=== PATIENT | female | born 1980 | race Caucasian/White ===

== ENCOUNTER 2018-04-09 18:17 | Emergency (ER) | payer BC ==
[~2018-04-09] VITALS: Ht 154.9 cm; Wt 98.5 kg
[2018-04-09 19:20] LABS: BASOPHIL (%) 0.4 % (0-1); BASOPHIL COUNT 0.1 K/uL (0-0.1); EOSINOPHIL (%) 1.9 % (0-5); EOSINOPHIL COUNT 0.3 K/uL (0-0.3); HEMATOCRIT 44.2 % (36.0-46.0); IMMATURE GRANULOCYTE (%) 0.4 % (0.0-0.7); LYMPHOCYTE (%) 28.6 % (15-42); LYMPHOCYTE COUNT 3.9 K/uL (1.0-2.8); MCH 29.6 PG (29.0-34.0); MCHC 33.9 G/DL (30.0-36.0); MCV 87.4 FL (83-99); MONOCYTE (%) 3.3 % (3-12); MONOCYTE COUNT 0.5 K/uL (0-0.8); NEUTROPHIL (%) 65.4 % (45-76); PLATELET COUNT 312 K/uL (156-360); RBC DIS.WIDTH-CV 13.3 % (11.8-14.6); RBC DIS.WIDTH-SD 41.7 % (39-53); RED BLOOD COUNT 5.06 M/uL (3.80-5.20); WHITE BLOOD COUNT 13.7 K/uL (4.1-10.2)
[2018-04-09 19:38] LABS: CHLORIDE 108 mEq/L (99-109); POTASSIUM 4.2 mEq/L (3.7-5.4); SODIUM 139 mEq/L (136-147)
[2018-04-09 19:40] LABS: GLUCOSE 125 mg/dL (70-99)
[2018-04-09 19:44] LABS: CREATININE 0.9 mg/dL (0.6-1.3); UREA NITROGEN (BUN) 9 mg/dL (9-23)
[2018-04-09 19:47] LABS: GFR ESTIMATE (CALCULATED) > 59 mL/min/
[2018-04-09] MEDS ORDERED: MOTRIN800 MG PO (22:00)
[2018-04-09] MEDS ORDERED: FLEXERIL10 MG PO (22:01)
[2018-04-09 22:26] VITALS: BP 151/105
== END 2018-04-09 22:27 | disposition home or self-care (01) ==
LOC: EME 18:17
PROVIDERS: Emergency Medicine
DX: S06.0X0A Concussion without loss of consciousness, initial encounter (principal); S16.1XXA Strain of muscle, fascia and tendon at neck level, initial encounter; S20.219A Contusion of unspecified front wall of thorax, initial encounter; T14.8XXA Other injury of unspecified body region, initial encounter; W22.09XA Striking against other stationary object, initial encounter; Y93.16 Activity, rowing, canoeing, kayaking, rafting and tubing; Y92.828 Other wilderness area as the place of occurrence of the external cause; Z87.820 Personal history of traumatic brain injury; Z88.2 Allergy status to sulfonamides
CPT/HCPCS: 70450; 71046; 72125; 80048; 85025; 99281; 99284